=== PATIENT | female | born 1975 | race Caucasian/White ===

== ENCOUNTER 2022-05-11 12:37 | Inpatient (IN) | payer MEDICAID ==
[~2022-05-11] VITALS: Ht 152.4 cm; Wt 92.5 kg
[2022-05-11 12:56] VITALS: BP 99/50
--- NOTE | 2022-05-11 13:04 | NUR ---
Patient ambulated to bed 2.
[2022-05-11] MEDS ORDERED: NACL 0.9% 1,000 ML IV ONE ×2 (13:15→16:05)
--- NOTE | 2022-05-11 13:29 | NUR ---
DR ROPER AT BEDSIDE EVALUATING PT
--- NOTE | 2022-05-11 14:00 | NUR ---
Female Professor Of Biology accompanied female patient for Rectal Exam.
[2022-05-11 14:27] LABS: BASOPHILS # (AUTO) 0.1 K/uL (0.00-0.22); BASOPHILS % (AUTO) 0.3 % (0.0-2.0); EOSINOPHILS % (AUTO) 0.2 % (0.0-4.0); HEMATOCRIT 39.6 % (36-48); HEMOGLOBIN 12.6 g/dL (12.0-16.0); LYMPHOCYTES # (AUTO) 2.6 K/uL (2.5-16.5); MEAN CORPUSCULAR HEMOGLOBIN 28 pg (27-31); MEAN CORPUSCULAR HGB CONC 32 g/dL (33-37); MEAN CORPUSCULAR VOLUME 87.8 fL (80-94); MONOCYTES # (AUTO) 1.9 K/uL (0.8-1.0); MONOCYTES % (AUTO) 9.3 % (1.7-9.3); NEUTROPHILS # (AUTO) 15.5 K/uL (1.8-7.7); PLATELET COUNT (AUTO) 324 K/uL (140-450); RED BLOOD CELL COUNT(AUTO) 4.51 MIL/uL (4.20-5.40); RED CELL DISTRIBUTION WIDTH 14.7 % (11.6-13.7); WHITE BLOOD COUNT (AUTO) 20.1 K/uL (4.8-10.8)
[2022-05-11 14:51] LABS: NEUTROPHILS % (AUTO) 77.2 % (42.2-75.2)
[2022-05-11 14:59] LABS: PROTHROMBIN TIME 9.4 secs (10.8-13.4)
[2022-05-11 15:02] LABS: ALBUMIN 4.5 g/dL (3.4-5.0); ANION GAP 18.8 (8-16); POTASSIUM 3.8 mmol/L (3.5-5.1); TOTAL BILIRUBIN 0.4 mg/dL (0.0-1.0)
[2022-05-11] MEDS ORDERED: ALPRAZolam 0.5 MG TAB PO ONE (16:05)
[2022-05-11] MEDS ORDERED: cefTRIAXone 1,000 MG VIAL ONE (16:24)
[2022-05-11] MEDS ORDERED: ALPR1TAB2 PO ×2 (17:47)
[2022-05-11] MEDS ORDERED: DIPH25TA53 PO (17:49)
[2022-05-11] MEDS ORDERED: ONDA-188 SL (17:49)
[2022-05-11 17:51] LABS: APPEARANCE,URINE CLEAR (CLEAR); COLOR,URINE YELLOW (YELLOW)
[2022-05-11 17:52] LABS: BLOOD, URINE MODERATE (NEGATIVE); LEUKOCYTE ESTERASE ,URINE TRACE (NEGATIVE); UGLUCOSE NEGATIVE (NEGATIVE)
[2022-05-11 17:53] LABS: BILIRUBIN,URINE NEGATIVE (NEGATIVE); NITRITE, URINE NEGATIVE (NEGATIVE)
[2022-05-11 18:34] LABS: RBC,URINE 0-5 /HPF (0-5)
[2022-05-11 18:35] LABS: TRICHOMONAS,URINE None Seen /HPF (None Seen); WBC,URINE 0-5 /HPF (0-5); YEAST,URINE None Seen /HPF (None Seen)
--- NOTE | 2022-05-11 19:26 | NUR ---
1923 called lab for update results since 1529
[2022-05-11] MEDS ORDERED: NACL 0.9% 1,000 ML IV SCH (19:45)
[2022-05-11] MEDS ORDERED: MAGNESIUM HYDROXIDE 2400 MG/30 ML UDC PO ONE (19:50)
--- NOTE | 2022-05-11 20:28 | NUR ---
Patient will be admitted to care of Dr YOUNG BECKWITH. Admited to TELEMETRY. Will go to room 111A. Belongings list completed. Report to DELFINO BAILEY.
[2022-05-11 20:40] VITALS: BP 160/114
[2022-05-11] MEDS ORDERED: HYDROcodone/APAP 7.5/325 MG 1 TAB PO PRN (20:40)
[2022-05-11] MEDS ORDERED: guaiFENesin DM 200/20 MG-10 ML 10 ML UDC PO PRN (20:40)
[2022-05-11] MEDS ORDERED: ZOLPIDEM 5 MG TAB PO PRN (20:40)
[2022-05-11] MEDS ORDERED: DOCUSATE SODIUM 100 MG GELCAP PO PRN (20:40)
[2022-05-11] MEDS ORDERED: ACETAMINOPHEN 325 MG TAB PO PRN (20:40)
[2022-05-11] MEDS ORDERED: ONDANSETRON 4 MG/2 ML VIAL IM/IVP PRN (20:40)
[2022-05-11] MEDS ORDERED: LEVOFLOXACIN 750 MG/D5W PREMIX 150 ML IV SCH (20:45)
[2022-05-11 21:57] LABS: FREE T4 (FREE THYROXINE) 0.96 ng/dL (0.76-1.46); MAGNESIUM 1.9 mg/dL (1.8-2.4); PHOSPHORUS 3.7 mg/dL (2.5-4.9); THYROID STIMULATING HORMONE 1.02 uIU/mL (0.34-3.74)
[2022-05-11] MEDS: NACL 0.9% 1,000 ML IV SCH (21:57)
--- NOTE | 2022-05-11 23:00 | NUR ---
RECEIVED PATIENT FROM ER DEPARTMENT AT 2039. PATIENT IS AWAKE AND ORIENTED X4, ADMITTED WITH A CHIEF COMPLAINT OF ABDOMINAL PRESSURE AND CONSTIPATION. CURRENTLY DENYING ANY PAIN. ON ROOM AIR, DENIES COUGH AND SOB. IV SITE TO THE LEFT AC 20 GAUGE, INTACT AND PATENT. PATIENT IS CONTINENT OF URINE BUT STATES SHE ONLY HAS A BM EVERY 2-3 DAYS. ORIENTED PATIENT TO THEIR ROOM, PLACED CALL LIGHT WITHIN REACH, ENCOURAGING USE WHEN ASSISTANCE IS REQUIRED. ALL SAFETY MEASURES IN PLACE, WILL CONTINUE TO MONITOR.
--- NOTE | 2022-05-11 23:43 | NUR ---
PATIENT COMPLAINT OF MINOR HEADACHE. PRN TYLENOL WAS ADMINISTERED PER MD ORDERS. NO OTHER SIGNS OF DISTRESS NOTED, WILL CONTINUE TO MONITOR.
[2022-05-12] VITALS: BP 153/103
--- NOTE | 2022-05-12 02:52 | NUR ---
PATIENT ASLEEP IN BED LYING SUPINE. NO SIGNS OR SYMPTOMS OF DISTRESS NOTED, WILL CONTINUE FREQUENT ROUNDS.
[2022-05-12 04:00] VITALS: BP 160/99
[2022-05-12 08:00] VITALS: BP 167/88
[2022-05-12 08:08] LABS: BASOPHILS # (AUTO) 0.1 K/uL (0.00-0.22); BASOPHILS % (AUTO) 0.5 % (0.0-2.0); EOSINOPHILS % (AUTO) 0.4 % (0.0-4.0); HEMATOCRIT 34.8 % (36-48); HEMOGLOBIN 11.3 g/dL (12.0-16.0); LYMPHOCYTES # (AUTO) 1.7 K/uL (2.5-16.5); LYMPHOCYTES % (AUTO) 17.5 % (20.5-51.1); MEAN CORPUSCULAR HEMOGLOBIN 29 pg (27-31); MEAN CORPUSCULAR HGB CONC 33 g/dL (33-37); MEAN CORPUSCULAR VOLUME 87.3 fL (80-94); MONOCYTES # (AUTO) 0.9 K/uL (0.8-1.0); MONOCYTES % (AUTO) 9.1 % (1.7-9.3); NEUTROPHILS # (AUTO) 7.2 K/uL (1.8-7.7); NEUTROPHILS % (AUTO) 72.5 % (42.2-75.2); PLATELET COUNT (AUTO) 228 K/uL (140-450); RED BLOOD CELL COUNT(AUTO) 3.98 MIL/uL (4.20-5.40); RED CELL DISTRIBUTION WIDTH 14.7 % (11.6-13.7)
[2022-05-12 08:12] LABS: ANION GAP 13.2 (8-16); CARBON DIOXIDE 24.2 mmol/L (21-32); CREATININE 0.6 mg/dL (0.6-1.3); POTASSIUM 3.4 mmol/L (3.5-5.1)
[2022-05-12] MEDS: PANTOPRAZOLE 40 MG TABEC PO SCH (09:21)
[2022-05-12] MEDS: POTASSIUM CHLORIDE 10 MEQ TABER PO PRN (09:22)
[2022-05-12 12:00] VITALS: BP 146/90
[2022-05-12] MEDS ORDERED: MAGNESIUM HYDROXIDE 2400 MG/30 ML UDC PO PRN (12:45)
[2022-05-12] MEDS ORDERED: LORazepam 0.5 MG TAB PO PRN (12:55)
[2022-05-12] MEDS ORDERED: MAGNESIUM HYDROXIDE 2400 MG/30 ML UDC PO SCH (13:00)
[2022-05-12] MEDS: NACL 0.9% 1,000 ML IV SCH (13:53)
[2022-05-12 16:00] VITALS: BP 148/83
--- NOTE | 2022-05-12 16:28 | NUR ---
PATIENT HAS BEEN SCREENED AND CATEGORIZED MODERATE NUTRITION RISK. PATIENT WILL BE SEEN WITHIN 3-5 DAYS OF ADMISSION. REVIEWED BY DARLENE FUENTES RD
--- NOTE | 2022-05-12 19:25 | NUR ---
ENDORSE PATIENT IN STABLE CONDITION TO PM SHIFT NURSE WHILE PIV D5NS INFUSING VIA R.WRIST 22G. L.FOREARM 24G SALINE LOCK PATENT.
--- NOTE | 2022-05-12 19:32 | NUR ---
ENDORSE PATIENT IN STABLE CONDITION TO PM SHIFT NURSE WHILE PIV LAC 20G INFUSING NS@100ML/HR.
--- NOTE | 2022-05-12 19:32 | NUR ---
ENDORSE PATIENT IN STABLE CONDITION TO PM SHIFT NURSE WHILE CHARBEL PINTO 22G SALINE LOCK. MOST RECENT ACCUCHECK READ 231 Addendum: 05/12/22 at 1934 by Yoselyn Mcintosh RN WRONG PATIENT
[2022-05-12 20:00] VITALS: BP 168/100
[2022-05-13] VITALS (7 sets, daily range): BP systolic 142–162; BP diastolic 89–94
[2022-05-13] MEDS: ALPRAZolam 0.5 MG TAB PO PRN ×2 (00:06→09:44)
[2022-05-13] MEDS: NACL 0.9% 1,000 ML IV SCH (05:16)
[2022-05-13 07:27] LABS: HEMATOCRIT 33.7 % (36-48); HEMOGLOBIN 11.4 g/dL (12.0-16.0); MEAN CORPUSCULAR HEMOGLOBIN 29 pg (27-31); MEAN CORPUSCULAR HGB CONC 34 g/dL (33-37); MEAN CORPUSCULAR VOLUME 86.3 fL (80-94); PLATELET COUNT (AUTO) 236 K/uL (140-450); RED BLOOD CELL COUNT(AUTO) 3.91 MIL/uL (4.20-5.40); RED CELL DISTRIBUTION WIDTH 14.5 % (11.6-13.7); WHITE BLOOD COUNT (AUTO) 9.9 K/uL (4.8-10.8)
[2022-05-13 07:29] LABS: ANION GAP 15.6 (8-16); CARBON DIOXIDE 21.8 mmol/L (21-32); CREATININE 0.6 mg/dL (0.6-1.3); POTASSIUM 3.4 mmol/L (3.5-5.1)
[2022-05-13 08:46] LABS: EOSINOPHILS % (MANUAL) 2 % (0-4); LYMPHOCYTES % (MANUAL) 23 % (20-46); MONOCYTES % (MANUAL) 8 % (5-12); PROMYELOCYTES % 1 % (0-0)
--- NOTE | 2022-05-13 09:04 | NUR ---
DC PLANNING LATE ENTRY, PT SEEN ON 05/12 ALTHEA MET WITH PT AND PTS PARTNER, JUSTIN AT BEDSIDE TO COMPLETE ASSESSMENT. PT ALERT AND ORIENTED AND ABLE TO PROVIDE ALL OF HER OWN INFORMATION. PT REPORTS RESIDING IN A SINGLE STORY HOME WITH HER AUNT, AT THE ADDRESS LISTED ON FILE. PT IDENTIFIED JUSTIN OLIVAS, PARTNER, AND MARIE PARKS, UNCLE, . PT DENIES AD IN PLACE AND DECLINED AD OFFERED BY ALTHEA. PT REPORTS MEETING WITH PCP REGULARLY, LAST VISIT WITH PCP, 2-3 MONTHS AGO. PT DENIES AD IN PLACE AND DECLINED AD OFFERED BY ALTHAE. PT REPORTS MEDICATION COMPLIANCE AND REPORTS RECEIVING MEDICATION FROM [facility] IN [facility] [place] [facility] [address], IN [place] WHEN NEEDED. PT REPORTS BEING INDEPENDENT IN ALL ACTIVITIES AND DENIES USE OF DME. PT DENIES MH/MOYA HX. PT DENIES HX OF DIABETES, DIALYSIS, HH, SNF PLACEMENT. Addendum: 05/13/22 at 09 by Cathie TREJO Amended: Links added. Addendum: 05/13/22 at 0930 by Cathie TREJO PLEASE DISREGARD NOTE, NOT MADE IN ERROR AND IS NOT FOR THIS PT.
[2022-05-13 09:07] LABS: T4 (THYROXINE) 7.8 ug/dL (4.5-12.0)
--- NOTE | 2022-05-13 09:30 | NUR ---
DC PLANNING LATE ENTRY, PT SEEN 05/12 SW MET WITH PT AND PTS PARTNER, SARAH AT BEDSIDE TO COMPLETE ASSESSMENT. PT ALERT AND ORIENTED AND ABLE TO PROVIDE ALL OF HER OWN INFORMATION. PT PROVIDED SW PERMISSION TO COMPLETE ASSESSMENT WITH PARTNER IN ROOM. PT REPORTS RESIDING IN A SINGLE STORY [place] WITH HER MOM, AT THE ADDRESS LISTED ON FILE. PT IDENTIFIED SARAH AGOSTO, PARTNER, AND BRADEN AGOTSO, DAUGHTER , EC. PT DENIES AD IN PLACE AND DECLINED AD OFFERED BY SW.PT REPORTS MEETING WITH PCP NEEDED, LAST VISIT WITH PCP, 3 MONTHS AGO .PT REPORTS RECENTLY LOSING HER JOB AND LOSING INSURANCE. SW SPOKE TO PT ABOUT THE IMPORTANCE OF FOLLOWING UP WITH [facility]ELSE[facility] PEREA REP TO OBTAIN [facility]. EXPLAINED TO PT IF SHE DOES NOT HEAR FROM REP THAT SHE MUST FOLLOW UP WITH COUNTY OFFICE AND TURNING IN ALL REQUIRES DOCUMENTS SO THAT FULL SCOPE MEDICAL IS OBTAINED. PT REPORTS MEDICATION COMPLIANCE AND REPORTS RECEIVING MEDICATION FROM [facility] IN [place], WHEN NEEDED. PT REPORTS BEING INDEPENDENT IN ALL ACTIVITIES AND DENIES USE OF DME. PT REPORTS HX OF ANXIETY AND DEPRESSION HOWEVER, REPORTS SX ARE CURRENTLY WELL MANAGED. SW SPOKE TO PT ABOUT IMPORTANCE OF FOLLOWING UP WITH OBTAINING [facility]I-[facility] SO THEY SHE MAY SEEK MENTAL HEALTH SERVICES AND MEET WITH THERAPIST TO AID IN IDENTIFYING COPING SKILLS AND SX'S. PT RECEPTIVE. PT DENIES HX OF SUBSTANCE USE, DIABETES, HH, SNF PLACEMENT, DIALYSIS TX. PT REPORTS DC PLAN IS TO RETURN HOME W PROVIDING TRANSPORTATION, ONCE CLEARED FOR DC.
[2022-05-13] MEDS: PANTOPRAZOLE 40 MG TABEC PO SCH (09:44)
[2022-05-13] MEDS: POTASSIUM CHLORIDE 10 MEQ TABER PO PRN (09:45)
[2022-05-13] MEDS ORDERED: ALPRAZolam 0.5 MG TAB PO PRN ×2 (12:50→14:20)
[2022-05-13] MEDS ORDERED: ATOR20TA PO (15:59)
--- NOTE | 2022-05-13 16:43 | NUR ---
DISCHARGE PATIENT IN STABLE CONDITION PER PCP ORDER. DISCHARGE INSTRUCTION, DISCHARGE CONSENT SIGN. IV ACCESS, TEL MONITOR, AND WRIST BAND REMOVED PRIOR PATIENT WHEEL OUT THE FACILITY
== END 2022-05-13 17:10 | disposition home or self-care (01) | DRG 720 ==
LOC: MED 12:37 → MTU 19:46
PROVIDERS: ADMIT Family Medicine; ATTEND Family Medicine
DX: A41.9 Sepsis, unspecified organism (principal); R71.0 Precipitous drop in hematocrit; K76.0 Fatty (change of) liver, not elsewhere classified; E87.6 Hypokalemia; E78.5 Hyperlipidemia, unspecified; F41.9 Anxiety disorder, unspecified; Z88.1 Allergy status to other antibiotic agents; Z20.822 Contact with and (suspected) exposure to COVID-19; Z90.49 Acquired absence of other specified parts of digestive tract; R65.20 Severe sepsis without septic shock
CPT/HCPCS: 36415; 71045; 76705; 80048; 80053; 81001; 82150; 83036; 83605; 83690; 83735; 83880; 84100; 84436; 84439; 84443; 84479; 85025; 85610; 85730; 86886; 86900; 86901; 87040; 87081; 96361; 96365; 99291; J0696; J1956; Q0092; Q0163

== ENCOUNTER 2023-06-21 12:58 | Emergency (ER) | payer MEDICAID, OTHER ==
[~2023-06-21] VITALS: Ht 152.4 cm; Wt 77.1 kg
[~2023-06-21 12:58] MED LIST: ALPR1TAB2 PO; ATOR20TA PO; DIPH25TA53 PO; ONDA-188 SL
[2023-06-21 13:00] VITALS: BP 134/74; PULSE 138; RESP 15; TEMP 99.1; O2SAT 100
[2023-06-21 13:33] VITALS: O2SAT 100
[2023-06-21] MEDS: NACL 0.9% 2,000 ML IV ONE (13:37)
[2023-06-21 13:44] LABS: BASOPHILS % (AUTO) 0.3 % (0.0-2.0); EOSINOPHILS % (AUTO) 0.1 % (0.0-4.0); HEMATOCRIT 32.5 % (36-48); HEMOGLOBIN 10.5 g/dL (12.0-16.0); LYMPHOCYTES # (AUTO) 0.7 K/uL (2.5-16.5); LYMPHOCYTES % (AUTO) 5.5 % (20.5-51.1); MEAN CORPUSCULAR HEMOGLOBIN 26 pg (27-31); MEAN CORPUSCULAR HGB CONC 32 g/dL (33-37); MEAN CORPUSCULAR VOLUME 79.5 fL (80-94); MONOCYTES # (AUTO) 1.1 K/uL (0.8-1.0); MONOCYTES % (AUTO) 7.7 % (1.7-9.3); NEUTROPHILS # (AUTO) 11.7 K/uL (1.8-7.7); NEUTROPHILS % (AUTO) 86.4 % (42.2-75.2); PLATELET COUNT (AUTO) 283 K/uL (140-450); RED BLOOD CELL COUNT(AUTO) 4.09 MIL/uL (4.20-5.40); RED CELL DISTRIBUTION WIDTH 16.2 % (11.6-13.7); WHITE BLOOD COUNT (AUTO) 13.6 K/uL (4.8-10.8)
[2023-06-21 13:45] LABS: BILIRUBIN,URINE NEGATIVE (NEGATIVE); COLOR,URINE YELLOW (YELLOW); LEUKOCYTE ESTERASE ,URINE 2+ (NEGATIVE); NITRITE, URINE NEGATIVE (NEGATIVE); PH,URINE 6.5 (5.0-9.0); PROTEIN,URINE NEGATIVE (NEGATIVE); UGLUCOSE NEGATIVE (NEGATIVE); UROBILINOGEN,URINE 0.2 EU/dL (0.2 - 1)
[2023-06-21 13:54] LABS: APPEARANCE,URINE SLIGHTLY HAZY (CLEAR); BACTERIA,URINE OCCASSIONAL /HPF (None Seen); BLOOD, URINE 1+ (NEGATIVE); RBC,URINE 0-5 /HPF (0-5); SQUAMOUS EPITHELIAL CELL,UR 4-10 (MOD) /LPF (0-3 (FEW))
[2023-06-21 14:04] LABS: ANION GAP 12.7 (8-16); CALCIUM 8.8 mg/dL (8.5-10.1); CARBON DIOXIDE 25.5 mmol/L (21-32); CREATININE 0.8 mg/dL (0.6-1.3); POTASSIUM 3.2 mmol/L (3.5-5.1)
[2023-06-21 14:10] LABS: ALBUMIN 3.4 g/dL (3.4-5.0); BILIRUBIN,DIRECT 0.4 mg/dL (0.0-0.3); TOTAL BILIRUBIN 1.3 mg/dL (0.0-1.0); TOTAL PROTEIN, SERUM 9.1 g/dL (6.4-8.2)
[2023-06-21 14:13] LABS: LACTIC ACID 1.5 mmol/L (0.4-2.0)
[2023-06-21] MEDS: IBUPROFEN 400 MG TAB PO ONE (14:24)
[2023-06-21] MEDS: ACETAMINOPHEN EXTRA STRENGTH 500 MG TAB PO ONE (14:24)
[2023-06-21 15:11] VITALS: BP 114/62; PULSE 92; RESP 20; TEMP 99.1; O2SAT 100
[2023-06-21] MEDS ORDERED: ACET-8905 PO (15:24)
== END 2023-06-21 16:11 | disposition home or self-care (01) ==
LOC: MED 12:58
DX: N39.0 Urinary tract infection, site not specified (principal); Z88.1 Allergy status to other antibiotic agents; Z79.82 Long term (current) use of aspirin; Z79.899 Other long term (current) drug therapy
CPT/HCPCS: 36415; 74176; 80048; 80076; 81001; 81025; 83605; 83690; 85025; 87040; 87086; 96360; 99284; J7030

== ENCOUNTER 2023-11-02 08:03 | Emergency (ER) | payer OTHER ==
[~2023-11-02] VITALS: Ht 152.4 cm; Wt 69.9 kg
[~2023-11-02 08:03] MED LIST changes: +ACET-8905 PO
[2023-11-02 08:05] VITALS: BP 138/84; PULSE 124; RESP 18; TEMP 97.8; O2SAT 100
[2023-11-02] MEDS ORDERED: NITR100C7 PO (08:38)
[2023-11-02] MEDS ORDERED: IBUP-1842 PO (08:38)
[2023-11-02] MEDS: IBUPROFEN 400 MG TAB PO ONE (08:50)
[2023-11-02 09:04] VITALS: BP 138/84; PULSE 124; RESP 18; TEMP 97.8; O2SAT 100
== END 2023-11-02 09:04 | disposition home or self-care (01) ==
LOC: MED 08:03
DX: N39.0 Urinary tract infection, site not specified (principal); R03.0 Elevated blood-pressure reading, without diagnosis of hypertension; F41.9 Anxiety disorder, unspecified; F32.9 Major depressive disorder, single episode, unspecified; Z90.49 Acquired absence of other specified parts of digestive tract; Z98.890 Other specified postprocedural states; Z79.1 Long term (current) use of non-steroidal anti-inflammatories (NSAID); Z79.899 Other long term (current) drug therapy; Z88.0 Allergy status to penicillin; Z88.8 Allergy status to other drugs, medicaments and biological substances
CPT/HCPCS: 81002; 81025; 99283